=== PATIENT | female | born 1950 | race Caucasian/White ===

== ENCOUNTER 2017-08-06 03:01 | Emergency (ER) | payer MEDICARE, MEDICAID ==
[~2017-08-06] VITALS: Ht 149.9 cm; Wt 83.5 kg
[2017-08-06 03:10] VITALS: BP_SYST 156
[2017-08-06] MEDS ORDERED: FUROSEMIDE 40 MG/4 ML VIAL IVP ONE (03:30)
[2017-08-06] MEDS ORDERED: NACL 0.9% 1,000 ML IV ONE (03:30)
[2017-08-06 04:23] LABS: BASOPHILS # (AUTO) 0.1 K/uL (0.0-0.2); BASOPHILS % (AUTO) 0.5 % (0.0-2.0); EOSINOPHILS # (AUTO) 0.4 K/uL (0.0-0.4); EOSINOPHILS % (AUTO) 3.4 % (0.0-4.0); HEMATOCRIT 34.5 % (36-48); HEMOGLOBIN 11.2 g/dL (12.0-16.0); LYMPHOCYTES # (AUTO) 1.8 K/uL (1.0-5.5); LYMPHOCYTES % (AUTO) 17.9 % (20.5-51.5); MEAN CORPUSCULAR HEMOGLOBIN 30 pg (27-31); MEAN CORPUSCULAR HGB CONC 33 % (32-36); MEAN CORPUSCULAR VOLUME 92 fL (79.0-98.0); MONOCYTES # (AUTO) 0.9 K/uL (0.0-1.0); MONOCYTES % (AUTO) 8.4 % (1.7-9.3); NEUTROPHILS # (AUTO) 7.1 K/uL (1.8-7.7); NEUTROPHILS % (AUTO) 69.8 % (40.0-70.0); PLATELET COUNT (AUTO) 330 K/uL (130-430); RED BLOOD CELL COUNT(AUTO) 3.76 MIL/uL (4.2-6.2); WHITE BLOOD COUNT (AUTO) 10.3 K/uL (4.8-10.8)
[2017-08-06 04:26] LABS: CREATININE 1.44 mg/dL (0.55-1.30); POTASSIUM 3.8 mmol/L (3.5-5.1)
[2017-08-06 04:31] LABS: ALBUMIN 3.4 g/dL (3.4-4.8); PROTHROMBIN TIME 10.6 SECS (9.5-12.5); TOTAL BILIRUBIN 0.6 mg/dL (0.0-1.0)
[2017-08-06 04:54] LABS: BILIRUBIN,URINE NEGATIVE (NEGATIVE); BLOOD, URINE TRACE (NEGATIVE); CLARITY/URINE CLEAR (CLEAR); COLOR,URINE YELLOW (YELLOW); GLUCOSE,URINE NEGATIVE (NEGATIVE); KETONES,URINE NEGATIVE (NEGATIVE); LEUKOCYTE ESTERASE ,URINE NEGATIVE (NEGATIVE); NITRITE, URINE NEGATIVE (NEGATIVE); PH,URINE 5.5 (5.0-8.0); PROTEIN URINE TRACE (NEGATIVE); UROBILINOGEN,URINE 0.2 (0.2-1.0)
[2017-08-06 04:59] LABS: BACTERIA,URINE FEW /HPF (None Seen); MUCUS,URINE None Seen /LPF (None Seen); RBC,URINE 0-3 /HPF (0-3); URINE AMORPHOUS URATE 1+ /HPF (None Seen); WBC,URINE 0-3 /HPF (0-3)
[2017-08-06] MEDS ORDERED: NITROGLYCERIN 1 INCH (GM) OINT. TP ONE (05:00)
[2017-08-06] MEDS ORDERED: ASPIRIN 81 MG TAB.CHEW PO ONE (05:00)
[2017-08-06 06:07] VITALS: BP_SYST 146
== END 2017-08-06 06:07 | disposition home or self-care (01) ==
LOC: SED 03:01
DX: E11.52 Type 2 diabetes mellitus with diabetic peripheral angiopathy with gangrene (principal); I96 Gangrene, not elsewhere classified; I77.6 Arteritis, unspecified; I11.0 Hypertensive heart disease with heart failure; I50.9 Heart failure, unspecified; E78.00 Pure hypercholesterolemia, unspecified; Z89.422 Acquired absence of other left toe(s); Z95.1 Presence of aortocoronary bypass graft
CPT/HCPCS: 36415; 71010; 80053; 81000; 83605; 83880; 84484; 85025; 85610; 85730; 87040; 87081; 87086; 93005; 96361; 96374; 99285; J1940; J7030; J7060

== ENCOUNTER 2018-03-22 18:43 | Emergency (ER) | payer MEDICARE, MEDICAID ==
[~2018-03-22] VITALS: Ht 149.9 cm; Wt 54.4 kg
[2018-03-22 18:43] VITALS: BP_SYST 145
[2018-03-22 19:22] LABS: BILIRUBIN,URINE NEGATIVE (NEGATIVE); BLOOD, URINE NEGATIVE (NEGATIVE); CLARITY/URINE CLEAR (CLEAR); COLOR,URINE YELLOW (YELLOW); GLUCOSE,URINE NEGATIVE (NEGATIVE); KETONES,URINE NEGATIVE (NEGATIVE); LEUKOCYTE ESTERASE ,URINE NEGATIVE (NEGATIVE); NITRITE, URINE NEGATIVE (NEGATIVE); PH,URINE 5.5 (5.0-8.0); PROTEIN URINE TRACE (NEGATIVE); UROBILINOGEN,URINE 0.2 (0.2-1.0)
[2018-03-22 19:31] LABS: RBC,URINE 0-3 /HPF (0-3)
[2018-03-22 19:32] LABS: BACTERIA,URINE FEW /HPF (None Seen); MUCUS,URINE None Seen /LPF (None Seen); WBC,URINE NONE SEEN /HPF (0-3)
[2018-03-22 19:34] LABS: BASOPHILS % (AUTO) 0.4 % (0.0-2.0); EOSINOPHILS # (AUTO) 0.2 K/uL (0.0-0.4); EOSINOPHILS % (AUTO) 2.2 % (0.0-4.0); HEMATOCRIT 36.4 % (36-48); HEMOGLOBIN 12.3 g/dL (12.0-16.0); LYMPHOCYTES % (AUTO) 23.9 % (20.5-51.5); MEAN CORPUSCULAR HEMOGLOBIN 31 pg (27-31); MEAN CORPUSCULAR HGB CONC 34 % (32-36); MEAN CORPUSCULAR VOLUME 92 fL (79.0-98.0); MONOCYTES # (AUTO) 0.7 K/uL (0.0-1.0); MONOCYTES % (AUTO) 8.3 % (1.7-9.3); NEUTROPHILS # (AUTO) 5.4 K/uL (1.8-7.7); NEUTROPHILS % (AUTO) 65.2 % (40.0-70.0); PLATELET COUNT (AUTO) 362 K/uL (130-430); RED BLOOD CELL COUNT(AUTO) 3.96 MIL/uL (4.2-6.2); RED CELL DISTRIBUTION WIDTH 12.1 % (9.0-15.0); WHITE BLOOD COUNT (AUTO) 8.3 K/uL (4.8-10.8)
[2018-03-22 19:45] LABS: CALCIUM 9.4 mg/dL (8.4-11.0); CREATININE 1.6 mg/dL (0.55-1.30); POTASSIUM 3.7 mmol/L (3.5-5.1)
[2018-03-22 19:50] LABS: ALBUMIN 3.5 g/dL (3.4-4.8); TOTAL BILIRUBIN 0.4 mg/dL (0.0-1.0)
[2018-03-22 22:00] VITALS: BP_SYST 140
== END 2018-03-22 22:00 | disposition home or self-care (01) ==
LOC: SED 18:43
DX: E11.649 Type 2 diabetes mellitus with hypoglycemia without coma (principal); E78.00 Pure hypercholesterolemia, unspecified; I10 Essential (primary) hypertension; Z86.73 Personal history of transient ischemic attack (TIA), and cerebral infarction without residual deficits; Z95.1 Presence of aortocoronary bypass graft
CPT/HCPCS: 36415; 80053; 81000-TC; 85025; 99284

== ENCOUNTER 2019-06-08 23:28 | Emergency (ER) | payer MEDICARE, MEDICAID ==
[~2019-06-08] VITALS: Ht 157.5 cm; Wt 81.6 kg
[2019-06-08 23:30] VITALS: BP_SYST 129
[2019-06-09] MEDS ORDERED: DEXTROSE 50% JECT 50 ML DISP.SYRIN IVP ONE (01:15)
[2019-06-09 01:21] LABS: BASOPHILS # (AUTO) 0.1 K/uL (0.0-0.2); BASOPHILS % (AUTO) 0.6 % (0.0-2.0); EOSINOPHILS # (AUTO) 0.4 K/uL (0.0-0.4); EOSINOPHILS % (AUTO) 2.8 % (0.0-4.0); HEMATOCRIT 34.8 % (36-48); HEMOGLOBIN 11.7 g/dL (12.0-16.0); LYMPHOCYTES # (AUTO) 4.1 K/uL (1.0-5.5); LYMPHOCYTES % (AUTO) 31.1 % (20.5-51.5); MEAN CORPUSCULAR HEMOGLOBIN 31 pg (27-31); MEAN CORPUSCULAR HGB CONC 34 % (32-36); MEAN CORPUSCULAR VOLUME 92 fL (79.0-98.0); MONOCYTES # (AUTO) 1.2 K/uL (0.0-1.0); MONOCYTES % (AUTO) 8.8 % (1.7-9.3); NEUTROPHILS # (AUTO) 7.5 K/uL (1.8-7.7); NEUTROPHILS % (AUTO) 56.7 % (40.0-70.0); PLATELET COUNT (AUTO) 438 K/uL (130-430); RED CELL DISTRIBUTION WIDTH 13.2 % (9.0-15.0); WHITE BLOOD COUNT (AUTO) 13.2 K/uL (4.8-10.8)
[2019-06-09] MEDS ORDERED: [UNRECOGNIZED DRUG - CODE] PO (01:32)
[2019-06-09] MEDS ORDERED: PRO10 PO (01:32)
[2019-06-09] MEDS ORDERED: CLOP75TA32 PO (01:32)
[2019-06-09 01:35] LABS: CALCIUM 9.3 mg/dL (8.4-11.0); CREATININE 1.45 mg/dL (0.55-1.30); POTASSIUM 3.2 mmol/L (3.5-5.1)
[2019-06-09 01:39] LABS: ALBUMIN 3.6 g/dL (3.4-4.8); TOTAL BILIRUBIN 0.5 mg/dL (0.0-1.0)
[2019-06-09 05:05] LABS: BILIRUBIN,URINE NEGATIVE (NEGATIVE); CLARITY/URINE HAZY (CLEAR); COLOR,URINE YELLOW (YELLOW); GLUCOSE,URINE NEGATIVE (NEGATIVE); KETONES,URINE NEGATIVE (NEGATIVE); LEUKOCYTE ESTERASE ,URINE 1+ (NEGATIVE); NITRITE, URINE NEGATIVE (NEGATIVE); PH,URINE 5.5 (5.0-8.0); PROTEIN URINE NEGATIVE (NEGATIVE); UROBILINOGEN,URINE 0.2 (0.2-1.0)
[2019-06-09 05:10] LABS: BLOOD, URINE TRACE (NEGATIVE)
[2019-06-09 05:52] LABS: BACTERIA,URINE MODERATE /HPF (None Seen)
[2019-06-09] MEDS ORDERED: cefTRIAXone 1 GM IVPB PREMIX 50 ML IV ONE (06:00)
[2019-06-09 06:55] VITALS: BP_SYST 142
[2019-06-09] MEDS ORDERED: NS 500 ML IV ONE (07:00)
== END 2019-06-09 06:55 | disposition other institution (70) ==
LOC: SED 23:28
DX: E11.649 Type 2 diabetes mellitus with hypoglycemia without coma (principal); N39.0 Urinary tract infection, site not specified; R74.0 Nonspecific elevation of levels of transaminase and lactic acid dehydrogenase [LDH]; I10 Essential (primary) hypertension; E78.00 Pure hypercholesterolemia, unspecified; Z86.79 Personal history of other diseases of the circulatory system; Z88.8 Allergy status to other drugs, medicaments and biological substances; Z79.899 Other long term (current) drug therapy
CPT/HCPCS: 36415; 80053; 81000; 82962; 83605; 85025; 87040; 87086; 87186; 93005; 96361; 96365; 96375; 99285; J0696; J7040

== ENCOUNTER 2019-06-18 17:42 | Emergency (ER) | payer MEDICARE, MEDICAID ==
[~2019-06-18] VITALS: Ht 162.6 cm; Wt 63.5 kg
[2019-06-18 17:42] VITALS: BP_SYST 133
[~2019-06-18 17:42] MED LIST: CLOP75TA32 PO; PRO10 PO; [UNRECOGNIZED DRUG - CODE] PO
[2019-06-18 18:26] LABS: BASOPHILS # (AUTO) 0.1 K/uL (0.0-0.2); EOSINOPHILS # (AUTO) 0.2 K/uL (0.0-0.4); EOSINOPHILS % (AUTO) 1.8 % (0.0-4.0); HEMATOCRIT 32.5 % (36-48); HEMOGLOBIN 10.9 g/dL (12.0-16.0); LYMPHOCYTES % (AUTO) 17.4 % (20.5-51.5); MEAN CORPUSCULAR HEMOGLOBIN 31 pg (27-31); MEAN CORPUSCULAR HGB CONC 34 % (32-36); MEAN CORPUSCULAR VOLUME 92 fL (79.0-98.0); MONOCYTES # (AUTO) 0.9 K/uL (0.0-1.0); MONOCYTES % (AUTO) 7.7 % (1.7-9.3); NEUTROPHILS # (AUTO) 8.1 K/uL (1.8-7.7); NEUTROPHILS % (AUTO) 72.1 % (40.0-70.0); PLATELET COUNT (AUTO) 359 K/uL (130-430); RED BLOOD CELL COUNT(AUTO) 3.54 MIL/uL (4.2-6.2); RED CELL DISTRIBUTION WIDTH 13.3 % (9.0-15.0); WHITE BLOOD COUNT (AUTO) 11.2 K/uL (4.8-10.8)
[2019-06-18 18:42] LABS: PROTHROMBIN TIME 10.4 SECS (9.5-12.5)
[2019-06-18 18:54] LABS: ANION GAP 11 (5-15); CHLORIDE 105 mmol/L (98-107); CREATININE 1.64 mg/dL (0.55-1.30); GLUCOSE 177 mg/dL (70-99); POTASSIUM 3.7 mmol/L (3.5-5.1); SODIUM SERUM 139 mmol/L (136-145); UREA NITROGEN, BLOOD 53 mg/dL (8-21)
[2019-06-18 19:00] LABS: ALANINE AMINOTRANSFERASE 20 U/L (12-78); ALBUMIN 3.5 g/dL (3.4-4.8); ASPARTATE AMINOTRANSFERASE 13 U/L (10-37); TOTAL BILIRUBIN 0.5 mg/dL (0.0-1.0)
[2019-06-18 20:44] VITALS: BP_SYST 133
== END 2019-06-18 20:44 | disposition home or self-care (01) ==
LOC: SED 17:42
DX: E11.649 Type 2 diabetes mellitus with hypoglycemia without coma (principal); E11.9 Type 2 diabetes mellitus without complications; I10 Essential (primary) hypertension; Z88.8 Allergy status to other drugs, medicaments and biological substances; Z79.899 Other long term (current) drug therapy
CPT/HCPCS: 36415; 71045; 80053; 82550-TC; 82962; 83880; 84484; 85025; 85610-TC; 85730-TC; 93005; 99284

== ENCOUNTER 2019-09-16 11:21 | Emergency (ER) | payer MEDICARE, MEDICAID ==
[~2019-09-16] VITALS: Ht 162.6 cm; Wt 68.0 kg
[2019-09-16 11:21] VITALS: BP_SYST 154
--- NOTE | 2019-09-16 11:21 | NUR ---
Placed in room 6 . Placed on tow truck dispatcher, blood pressure machine and pulse oximeter. To gown for exam. Side rails up.
--- NOTE | 2019-09-16 11:22 | NUR ---
Patient arrived from [facility] via S s/p fall. Patient was in a motorized wheelchair and it fell over on her. Patient is complaining of headache, right hip pain, left leg pain.
--- NOTE | 2019-09-16 11:30 | NUR ---
ER Dr. Dunlap at bedside examining patient.
[2019-09-16 12:10] LABS: BASOPHILS # (AUTO) 0.1 K/uL (0.0-0.2); BASOPHILS % (AUTO) 0.4 % (0.0-2.0); EOSINOPHILS # (AUTO) 0.2 K/uL (0.0-0.4); EOSINOPHILS % (AUTO) 1.3 % (0.0-4.0); HEMATOCRIT 32.3 % (36-48); HEMOGLOBIN 11.1 g/dL (12.0-16.0); LYMPHOCYTES # (AUTO) 2.4 K/uL (1.0-5.5); LYMPHOCYTES % (AUTO) 19.4 % (20.5-51.5); MEAN CORPUSCULAR HEMOGLOBIN 32 pg (27-31); MEAN CORPUSCULAR HGB CONC 34 % (32-36); MEAN CORPUSCULAR VOLUME 94 fL (79.0-98.0); MONOCYTES # (AUTO) 0.8 K/uL (0.0-1.0); MONOCYTES % (AUTO) 6.3 % (1.7-9.3); NEUTROPHILS # (AUTO) 8.9 K/uL (1.8-7.7); NEUTROPHILS % (AUTO) 72.6 % (40.0-70.0); PLATELET COUNT (AUTO) 319 K/uL (130-430); RED BLOOD CELL COUNT(AUTO) 3.46 MIL/uL (4.2-6.2); RED CELL DISTRIBUTION WIDTH 14.7 % (9.0-15.0); WHITE BLOOD COUNT (AUTO) 12.2 K/uL (4.8-10.8)
[2019-09-16 12:31] LABS: ALANINE AMINOTRANSFERASE 38 U/L (12-78); ALBUMIN 3.8 g/dL (3.4-4.8); ANION GAP 5 (5-15); ASPARTATE AMINOTRANSFERASE 19 U/L (10-37); POTASSIUM 4.5 mmol/L (3.5-5.1); TOTAL BILIRUBIN 0.9 mg/dL (0.0-1.0)
[2019-09-16 13:12] LABS: CHLORIDE 96 mmol/L (98-107); GLUCOSE 282 mg/dL (70-99); SODIUM SERUM 129 mmol/L (136-145)
[2019-09-16 13:15] LABS: CALCIUM 12.9 mg/dL (8.4-11.0); CREATININE 1.46 mg/dL (0.55-1.30); UREA NITROGEN, BLOOD 39 mg/dL (8-21)
[2019-09-16] MEDS ORDERED: NACL 0.9% 1,000 ML IV ONE (13:45)
[2019-09-16 14:31] LABS: BILIRUBIN,URINE NEGATIVE (NEGATIVE); BLOOD, URINE NEGATIVE (NEGATIVE); CLARITY/URINE CLEAR (CLEAR); COLOR,URINE YELLOW (YELLOW); GLUCOSE,URINE NEGATIVE (NEGATIVE); KETONES,URINE NEGATIVE (NEGATIVE); LEUKOCYTE ESTERASE ,URINE NEGATIVE (NEGATIVE); NITRITE, URINE NEGATIVE (NEGATIVE); PH,URINE 5.5 (5.0-8.0); PROTEIN URINE NEGATIVE (NEGATIVE); UROBILINOGEN,URINE 0.2 (0.2-1.0)
--- NOTE | 2019-09-16 15:37 | NUR ---
Report called in to ALEXEY Rhodes at [facility] [place].
[2019-09-16 16:07] VITALS: BP_SYST 123
--- NOTE | 2019-09-16 16:09 | NUR ---
Patient to be transferred to [facility]. Is being transferred due to higher level of care. Receiving facility has accepting physician and available space. ER physician has signed transfer form. Patient or responsible alliance party has agreed to transfer and signed form. Patient belongings inventoried and will be sent with patient. Copy of nursing notes, lab reports, EKG, Physicians Orders and X-rays to be sent with patient. Report called to [place] at receiving facility. Receiving physician is Dr. Gómez. [facility] is onsite.
== END 2019-09-16 16:07 | disposition short-term general hospital (02) ==
LOC: SED 11:21
DX: S09.8XXA Other specified injuries of head, initial encounter (principal); E86.0 Dehydration; E87.0 Hyperosmolality and hypernatremia; E11.40 Type 2 diabetes mellitus with diabetic neuropathy, unspecified; I10 Essential (primary) hypertension; E78.00 Pure hypercholesterolemia, unspecified; Z86.79 Personal history of other diseases of the circulatory system; Z86.73 Personal history of transient ischemic attack (TIA), and cerebral infarction without residual deficits; Z88.6 Allergy status to analgesic agent; Z88.8 Allergy status to other drugs, medicaments and biological substances; W05.0XXA Fall from non-moving wheelchair, initial encounter; Y93.89 Activity, other specified; Y92.89 Other specified places as the place of occurrence of the external cause; Y99.8 Other external cause status
CPT/HCPCS: 36415; 70450; 71045; 73502; 80053; 81003; 82550; 84484; 85025; 96360; 99285; J7030

== ENCOUNTER 2020-02-27 22:17 | Emergency (ER) | payer MEDICARE, MEDICAID ==
[~2020-02-27] VITALS: Ht 162.6 cm; Wt 54.4 kg
[2020-02-27 22:22] VITALS: BP_SYST 146
--- NOTE | 2020-02-27 22:22 | NUR ---
Patient triaged and placed in ER Hallway. VSS and patient appears in no acute distress at this time. Accompanied by, awaiting available bed, and MD notified of need for MSE.
--- NOTE | 2020-02-27 22:39 | NUR ---
notified of Accucheck 520.
--- NOTE | 2020-02-27 22:39 | NUR ---
Patient received 32 units of Lantus at 1630, 3 units of humulin R at 1999, 7 units of humulin R at 2050.
[2020-02-27] MEDS ORDERED: HYDR-3917 PO (22:55)
[2020-02-27] MEDS ORDERED: CA C1TAB92 PO (22:55)
[2020-02-27] MEDS ORDERED: CLOP75TA32 PO (22:55)
[2020-02-27] MEDS ORDERED: METO-442 PO (22:55)
[2020-02-27] MEDS ORDERED: FLUO40CA8 PO (22:55)
[2020-02-27] MEDS ORDERED: POTA8TAB57 PO (22:55)
[2020-02-27] MEDS ORDERED: MULT-1089 PO (22:55)
[2020-02-27] MEDS ORDERED: TRIA15CR4 TP (22:55)
[2020-02-27] MEDS ORDERED: GLUXR500 PO (22:55)
[2020-02-27] MEDS ORDERED: ATOR-1 PO (22:55)
[2020-02-27] MEDS ORDERED: DILT60TA3 PO (22:55)
[2020-02-27] MEDS ORDERED: FURO40TA5 PO (22:55)
[2020-02-27] MEDS ORDERED: INSU100V9 SQ (23:04)
[2020-02-27] MEDS ORDERED: AMOX-423 PO (23:04)
[2020-02-27] MEDS ORDERED: SILV20CR13 TP (23:04)
[2020-02-27] MEDS ORDERED: GLUC1KIT IJ (23:04)
[2020-02-27] MEDS ORDERED: INSU100V7 SUBCUT (23:04)
[2020-02-27] MEDS ORDERED: INSULIN REGULAR, HUMAN 10 UNITS/0.1 ML INJ IVP ONE (23:15)
[2020-02-27] MEDS ORDERED: NACL 0.9% 1,000 ML IV ONE (23:15)
--- NOTE | 2020-02-27 23:18 | NUR ---
ER at bedside examining patient.
--- NOTE | 2020-02-27 23:20 | NUR ---
Note francisco in ED - 02/28/20 at 0110 by MICHAELLE PT BIB BLS FROM HOME A&O X4 FOR BLOOD SUGAR OF 520. PT DENIES PAIN, N/V.
--- NOTE | 2020-02-27 23:20 | NUR ---
PT BIB BLS FROM [facility] A&O X4 FOR BLOOD SUGAR OF 520. PT WAS GIVEN INSULIN PRIOR TO ARRIVAL. PT DENIES PAIN, N/V.
--- NOTE | 2020-02-27 23:30 | NUR ---
# 20 gauge angiocath placed to RAC. Use of asceptic technique. Opsite placed over site. Blood return noted. Blood for lab drawn from site. Flushed with 10 cc of normal saline. No evidence of infiltration noted. Patient tolerated well.
[2020-02-27 23:59] LABS: ANION GAP 6 (5-15); BASOPHILS # (AUTO) 0.1 K/uL (0.0-0.2); BASOPHILS % (AUTO) 1.2 % (0.0-2.0); CALCIUM 8.6 mg/dL (8.4-11.0); CHLORIDE 100 mmol/L (98-107); CREATININE 2.06 mg/dL (0.55-1.30); EOSINOPHILS # (AUTO) 0.2 K/uL (0.0-0.4); EOSINOPHILS % (AUTO) 2.1 % (0.0-4.0); HEMATOCRIT 28.7 % (36-48); HEMOGLOBIN 9.7 g/dL (12.0-16.0); LYMPHOCYTES # (AUTO) 2.4 K/uL (1.0-5.5); MEAN CORPUSCULAR HEMOGLOBIN 31 pg (27-31); MEAN CORPUSCULAR HGB CONC 34 % (32-36); MEAN CORPUSCULAR VOLUME 93 fL (79.0-98.0); MONOCYTES # (AUTO) 0.8 K/uL (0.0-1.0); MONOCYTES % (AUTO) 10.3 % (1.7-9.3); NEUTROPHILS # (AUTO) 4.1 K/uL (1.8-7.7); NEUTROPHILS % (AUTO) 54.4 % (40.0-70.0); PLATELET COUNT (AUTO) 426 K/uL (130-430); POTASSIUM 4.2 mmol/L (3.5-5.1); RED BLOOD CELL COUNT(AUTO) 3.09 MIL/uL (4.2-6.2); RED CELL DISTRIBUTION WIDTH 13.2 % (9.0-15.0); SODIUM SERUM 132 mmol/L (136-145); UREA NITROGEN, BLOOD 50 mg/dL (8-21); WHITE BLOOD COUNT (AUTO) 7.5 K/uL (4.8-10.8)
[2020-02-28 00:01] LABS: ALANINE AMINOTRANSFERASE 19 U/L (12-78); ALBUMIN 3.2 g/dL (3.4-4.8); ASPARTATE AMINOTRANSFERASE 14 U/L (10-37); TOTAL BILIRUBIN 0.3 mg/dL (0.0-1.0)
[2020-02-28 00:06] LABS: GLUCOSE 522 mg/dL (70-99)
--- NOTE | 2020-02-28 00:21 | NUR ---
PT BLOOD SUGAR 316. MD NOTIFIED.
--- NOTE | 2020-02-28 00:25 | NUR ---
Patient to ER bed 3 to gown for evaluation. Side rails up.
--- NOTE | 2020-02-28 01:13 | NUR ---
PT BLOOD SUGAR 170. MD NOTIFIED. NO CHANGE IN ORDERS.
--- NOTE | 2020-02-28 01:17 | NUR ---
PLACED PT ON BEDPAN SO SHE COULD PEE TO GET A URINE SAMPLE.
--- NOTE | 2020-02-28 01:20 | NUR ---
URINE SENT TO LAB.
[2020-02-28 01:49] LABS: BILIRUBIN,URINE NEGATIVE (NEGATIVE); BLOOD, URINE NEGATIVE (NEGATIVE); CLARITY/URINE CLEAR (CLEAR); COLOR,URINE YELLOW (YELLOW); GLUCOSE,URINE 3+ (NEGATIVE); KETONES,URINE NEGATIVE (NEGATIVE); LEUKOCYTE ESTERASE ,URINE NEGATIVE (NEGATIVE); NITRITE, URINE NEGATIVE (NEGATIVE); PH,URINE 5.5 (5.0-8.0); PROTEIN URINE NEGATIVE (NEGATIVE); UROBILINOGEN,URINE 0.2 (0.2-1.0)
--- NOTE | 2020-02-28 02:00 | NUR ---
XRAY AT BEDSIDE.
--- NOTE | 2020-02-28 02:33 | NUR ---
[facility] ARRANGING FOR TRANSPORT BACK TO [facility].
--- NOTE | 2020-02-28 02:53 | NUR ---
CALLED [facility] TO INFORM THEM TRANSPORT WILL ARRIVE IN 10 MINS TO TAKE PT BACK TO FACILITY.
--- NOTE | 2020-02-28 03:25 | NUR ---
PT SLEEPING, VITAL SIGNS STABLE.
[2020-02-28 04:05] VITALS: BP_SYST 127
--- NOTE | 2020-02-28 04:06 | NUR ---
report given to spinneret person to transfer back to [facility].
== END 2020-02-28 04:05 | disposition home or self-care (01) ==
LOC: SED 22:17
DX: E11.65 Type 2 diabetes mellitus with hyperglycemia (principal); E78.00 Pure hypercholesterolemia, unspecified; I10 Essential (primary) hypertension; Z79.899 Other long term (current) drug therapy; Z88.8 Allergy status to other drugs, medicaments and biological substances; Z79.4 Long term (current) use of insulin
CPT/HCPCS: 36415; 71045; 80053; 81003; 82962; 85025; 96361; 96374; 99285; J1815; J7030; 99284

== ENCOUNTER 2021-05-13 07:25 | Emergency (ER) | payer MEDICARE, MEDICAID, SELFPAY ==
[~2021-05-13] VITALS: Ht 152.4 cm; Wt 67.6 kg
[~2021-05-13 07:25] MED LIST changes: +AMOX-423 PO; +ATOR-1 PO; +CA C1TAB92 PO; +DILT60TA3 PO; +FLUO40CA8 PO; +FURO40TA5 PO; +GLUC1KIT IJ; +GLUXR500 PO; +HYDR-3917 PO; +INSU100V7 SUBCUT; +INSU100V9 SQ; +METO-442 PO; +MULT-1089 PO; +POTA8TAB58 PO; +SILV20CR13 TP; +TRIA15CR4 TP
[2021-05-13 07:37] VITALS: BP_SYST 174
[2021-05-13 08:27] LABS: BASOPHILS # (AUTO) 0.1 K/uL (0.0-0.2); BASOPHILS % (AUTO) 0.5 % (0.0-2.0); EOSINOPHILS % (AUTO) 0.3 % (0.0-4.0); HEMATOCRIT 29.7 % (36-48); HEMOGLOBIN 9.9 g/dL (12.0-16.0); LYMPHOCYTES # (AUTO) 0.9 K/uL (1.0-5.5); LYMPHOCYTES % (AUTO) 7.2 % (20.5-51.5); MEAN CORPUSCULAR HEMOGLOBIN 31 pg (27-31); MEAN CORPUSCULAR HGB CONC 33 % (32-36); MEAN CORPUSCULAR VOLUME 93 fL (79.0-98.0); MONOCYTES # (AUTO) 0.6 K/uL (0.0-1.0); MONOCYTES % (AUTO) 4.5 % (1.7-9.3); NEUTROPHILS # (AUTO) 11.2 K/uL (1.8-7.7); NEUTROPHILS % (AUTO) 87.5 % (40.0-70.0); PLATELET COUNT (AUTO) 303 K/uL (130-430); RED CELL DISTRIBUTION WIDTH 13.6 % (9.0-15.0); WHITE BLOOD COUNT (AUTO) 12.8 K/uL (4.8-10.8)
[2021-05-13 08:30] LABS: ANION GAP 11 (5-15); CALCIUM 8.6 mg/dL (8.4-11.0); CHLORIDE 104 mmol/L (98-107); CREATININE 1.38 mg/dL (0.55-1.30); GLUCOSE 309 mg/dL (70-99); POTASSIUM 5.2 mmol/L (3.5-5.1); SODIUM SERUM 136 mmol/L (136-145); UREA NITROGEN, BLOOD 30 mg/dL (8-21)
[2021-05-13 08:36] LABS: ALANINE AMINOTRANSFERASE 19 U/L (12-78); ALBUMIN 3.1 g/dL (3.4-4.8); ASPARTATE AMINOTRANSFERASE 16 U/L (10-37)
[2021-05-13] MEDS ORDERED: LEVOFLOXACIN IN DEXTROSE 5 % 100 ML IV ONE (09:30)
[2021-05-13 12:38] VITALS: BP_SYST 156
== END 2021-05-13 12:40 | disposition short-term general hospital (02) ==
LOC: SED 07:25
DX: J18.9 Pneumonia, unspecified organism (principal); R09.02 Hypoxemia; I10 Essential (primary) hypertension; E11.9 Type 2 diabetes mellitus without complications; I25.10 Atherosclerotic heart disease of native coronary artery without angina pectoris; E78.00 Pure hypercholesterolemia, unspecified; Z88.8 Allergy status to other drugs, medicaments and biological substances; Z79.899 Other long term (current) drug therapy; Z79.4 Long term (current) use of insulin; Z20.822 Contact with and (suspected) exposure to COVID-19
CPT/HCPCS: 36415; 71045; 80053; 82962; 83605; 83880; 84145; 84484; 85025; 85610; 85730; 86710; 87040; 87426; 93005; 99285; J1956

== ENCOUNTER 2021-07-27 09:36 | Emergency (ER) | payer MEDICARE, MEDICAID, SELFPAY ==
[~2021-07-27] VITALS: Ht 152.4 cm; Wt 68.0 kg
[2021-07-27 09:36] VITALS: BP_SYST 125
--- NOTE | 2021-07-27 09:36 | NUR ---
Placed in room 7 . Placed on vehicle monitor technician, blood pressure machine and pulse oximeter. To gown for exam. Side rails up.
[2021-07-27] MEDS ORDERED: ROCURONIUM BROMIDE 10 MG/ML (ZEMURON) IV ONE (09:37)
--- NOTE | 2021-07-27 09:40 | NUR ---
PT BIBA FROM [facility] FOR C/O SOB PER PT 2 WEEKS, PER EMS PT WAS 96% ON RA ON SCENE, FEBRILE 100.1, BLOOD GLUCOSE 572, CONFUSED, HYPOTENSIVE 95/55. ARRIVES WITH #20LAC WITH NS BOLUS. UPON ARRIVAL TO HOSPITAL PT IS PALE, WARM TO TOUCH. RECTAL TEMP 100.3. BLOOD GLUCOSE 452, CONFUSED, REPEATING WORDS.
[2021-07-27] MEDS ORDERED: DIPH-TET-PERTUS Vaccine 0.5 ML VIAL (ADACEL) I.M. ONE (09:45)
[2021-07-27] MEDS ORDERED: NACL 0.9% 1,000 ML IV ONE (09:45)
[2021-07-27] MEDS ORDERED: ACETAMINOPHEN 500 MG TABLET PO ONE (10:00)
--- NOTE | 2021-07-27 10:13 | NUR ---
LAB AT THE BEDSIDE FOR BLOOD DRAW
--- NOTE | 2021-07-27 10:16 | NUR ---
PT BECAME UNRESPONSIVE, REPIRATIONS STOPPED. LARISA HAWTHORNE CALLED. TO THE BEDSIDE
--- NOTE | 2021-07-27 10:16 | NUR ---
CHEST COMPRESSIONS STARTED, SEE CODE BLUE SHEET FOR MEDICATIONS GIVEN
[2021-07-27] MEDS ORDERED: NOREPINEPHRINE 4 MG/4 ML VIAL IV ONE (10:23)
--- NOTE | 2021-07-27 10:24 | NUR ---
ROSC, PT CONTINUES TO BE IN RESPITORY DISTRESS, RT AT THE BEDSIDE FOR INTUBATION
--- NOTE | 2021-07-27 10:30 | NUR ---
LOSS OF PULSES, PT IN ASYSTOLE, CHEST COMPRESSIONS RESUMED, LARISA HAWTHORNE TEAM STILL AT BEDSIDE WITH
[2021-07-27 10:36] LABS: INR 1.3 (0.8-1.2); PROTHROMBIN TIME 13.9 SECS (9.5-12.5)
--- NOTE | 2021-07-27 10:36 | NUR ---
Patient not known to be of DNR status. Patient medicated with 50 mg of ROCEROUNIUM for sedation prior to placement of ET tube. Respiratory therapy at bedside prior to placement. Size 7 ET tube placed by ER DR. ESTRADA. Cuff inflated with 10 cc air. Auscultation of breath sounds over bilateral chest wall. ET tube secured . O2 sats 100% pulse ox. PCXR ordered to check tube placement.
[2021-07-27 10:39] LABS: ANION GAP 25 (5-15); CALCIUM 7.9 mg/dL (8.4-11.0); CHLORIDE 98 mmol/L (98-107); CREATININE 2.21 mg/dL (0.55-1.30); SODIUM SERUM 131 mmol/L (136-145); UREA NITROGEN, BLOOD 32 mg/dL (8-21)
[2021-07-27 10:41] LABS: ALANINE AMINOTRANSFERASE 45 U/L (12-78); ALBUMIN 2.3 g/dL (3.4-4.8); ASPARTATE AMINOTRANSFERASE 71 U/L (10-37); TOTAL BILIRUBIN 0.8 mg/dL (0.0-1.0)
--- NOTE | 2021-07-27 10:46 | NUR ---
ROSC, LEVOPHED STARTED PER MD ORDER
[2021-07-27] MEDS ORDERED: ALBUTEROL SULFATE 0.083% 2.5 MG/3 ML VIAL.NEB INH ONE ×3 (10:47→11:15)
[2021-07-27] MEDS ORDERED: SODIUM BICARBONATE 8.4% JECT 50 MEQ/50 ML SYRINGE ONE (10:57)
[2021-07-27] MEDS ORDERED: EPINEPHrine JECT 0.1 MG/ML SYR ONE (10:57)
--- NOTE | 2021-07-27 10:59 | NUR ---
# 16 FR San catheter with use of sterile technique. Immediate return of 5 cc CLOUDY YELLOW urine noted. Bedside drainage bag placed below level of bladder. Urine sample collected and sent to lab. Pt tolerated procedure WELL. Patient unable to toilet self.
[2021-07-27 11:03] LABS: POTASSIUM 6.8 mmol/L (3.5-5.1)
[2021-07-27 11:04] LABS: GLUCOSE 556 mg/dL (70-99)
--- NOTE | 2021-07-27 11:16 | NUR ---
Dr. See, [place] EPRP Doc, called back to speak to Dr. Hill regarding pt status.
--- NOTE | 2021-07-27 11:17 | NUR ---
PER DR ESTRADA PT IS DNR/DNI PER [place] FROM [facility], COPY OF POLST OBTAINED.
[2021-07-27 11:22] VITALS: BP_SYST 96
--- NOTE | 2021-07-27 12:01 | NUR ---
ER DR. ESTRADA AT BEDSIDE FOR LOSS OF PULSES. DECLARED TIME OF
--- NOTE | 2021-07-27 12:05 | NUR ---
RIKI PARKER FOR NOTIFICATION OF
--- NOTE | 2021-07-27 12:07 | NUR ---
Notified [place] [employer] of pt passing. Stated they will update their system and will get in contact if needed. spoke to Cony
--- NOTE | 2021-07-27 12:11 | NUR ---
Shaun singh in EDM - 07/27/21 at 1212 by MACIEL Kourtney procurement agency contacted by []. Case # [].
--- NOTE | 2021-07-27 12:12 | NUR ---
[facility]EY [facility]ERRY[facility] Case # [id number].
--- NOTE | 2021-07-27 12:33 | NUR ---
[facility] Department of [employer] called contacted by ALEXEY PERRY. Spoke with SHAUNA. NOT A COMPLIANCE QUALITY PERFORMANCE ANALYST CASE.
--- NOTE | 2021-07-27 13:39 | NUR ---
[facility] NOTIFIED OF PTS
--- NOTE | 2021-07-27 13:51 | NUR ---
SPOKE WITH [employer] NET DEVELOPER AT [facility]. AWAITING CALL BACK
--- NOTE | 2021-07-27 14:45 | NUR ---
SECURITY TO WEARING APPAREL ASSEMBLER AND TAKE BODY TO [facility]
== END 2021-07-27 14:45 ==
LOC: SED 09:36
DX: I46.9 Cardiac arrest, cause unspecified (principal); A41.9 Sepsis, unspecified organism; R65.21 Severe sepsis with septic shock; E87.5 Hyperkalemia; E11.65 Type 2 diabetes mellitus with hyperglycemia; I10 Essential (primary) hypertension; E78.00 Pure hypercholesterolemia, unspecified; Z88.8 Allergy status to other drugs, medicaments and biological substances; Z79.4 Long term (current) use of insulin; Z79.899 Other long term (current) drug therapy
CPT/HCPCS: 31500; 36415; 71045; 80053; 84484; 85610; 85730; 87040; 87186; 92950 ×2; 96360; 99291; 99292; J0171; J7030; J7613